=== PATIENT | female | born 1935 | race American Indian/Alaskan Native ===

== ENCOUNTER 2018-03-30 16:32 | Emergency (ER) | payer MEDICARE ==
[2018-03-30 16:58] VITALS: BP 178/94
[2018-03-30 17:58] LABS: Hematocrit 40.8 % (30.3-42.9); Hemoglobin 13.5 gm/dl (10.1-14.3); Mean Corpuscular HGB Conc 33 % (30-34); Mean Corpuscular Hemoglobin 27 pg (28-32); Mean Corpuscular Volume 82 fl (79-97); Platelet Count 377 K/mm3 (140-440); Red Cell Distribution Width 17.3 % (13.2-15.2)
[2018-03-30 18:09] LABS: BUN/Creatinine Ratio 10; Blood Urea Nitrogen 9 mg/dL (7-17); Calcium 9.5 mg/dL (8.4-10.2); Hemolysis Index 34
--- NOTE | 2018-03-30 18:52 | XRay Report ---
FINAL REPORT EXAM: XR CHEST ROUTINE 2V HISTORY: PERSISTANT COUGH TECHNIQUE: Two view chest PA and lateral PRIORS: None. FINDINGS: Cardiac and mediastinal contours are unremarkable. No focal pulmonary infiltrate is identified. No pleural fluid collection seen. Pulmonary vasculature is unremarkable. IMPRESSION: Negative two-view chest
[2018-03-30] MEDS ORDERED: NORCO 5/325 PO ONE (22:11)
--- NOTE | 2018-03-30 22:23 | Emergency Department Report ---
HPI - General Chief Complaint: Pain General Time Seen by Provider: 03/30/18 19:25 - HPI HPI: Room 10 The patient is an 82-year-old female presenting with a chief complaint of chest congestion left thigh pain. The patient states his symptoms began approximately 2 weeks ago with chest congestion and a cough productive of yellow mucous. Patient is to fever 101F as well as chills. The patient states she's also had pain in left buttocks radiating to the left lateral aspect of her knee for the past 5 days. Patient states the pain is intermittent. Patient currently gets her pain score 7.5/10. Patient denies any recent trauma. Patient states it usually hurts when she lies on her left leg. Location: [See above] Duration: 2 weeks Quality: Pain, congestion Severity: 7.5/10 Modifying factors: [see above] Context: [see above] Mode of transportation: [not driving] ED Past Medical Hx - Past Medical History Hx Diabetes: Yes Hx GERD: Yes (BLEEDING ULCERS IN 1976) Hx Arthritis: Yes (RA) Additional medical history: GOUT, HYPOTHYROIDISM, ELEVATED CHOLESTEROL, PNEUMONIA AND BRONCHITIS - Surgical History Past Surgical History?: No Additional Surgical History: D/C - Family History Family history: no significant - Social History Smoking Status: Never Smoker Substance Use Type: None - Medications Home Medications: Home Medications Medication Instructions Recorded Confirmed Last Taken Type Azithromycin [Zithromax Z-STACEY] 0 mg PO DAILY #6 tab 03/30/18 Unknown Rx HYDROcodone/APAP 5-325 [[place] 1 each PO Q6HR PRN #14 tablet 03/30/18 Unknown Rx 5/325] ED Review of Systems ROS: Stated complaint: LOWER BACK/ABD/KNEE PAIN Other details as noted in HPI Constitutional: fever Eyes: denies: eye pain ENT: denies: throat pain Respiratory: cough Cardiovascular: denies: chest pain Endocrine: no symptoms reported Gastrointestinal: denies: abdominal pain Genitourinary: denies: dysuria Musculoskeletal: myalgia Neurological: denies: headache Physical Exam - Physical Exam Vital Signs: Vital Signs 03/30/18 16:46 Temperature 98.3 F Pulse Rate 76 Respiratory 18 Rate Blood Pressure 178/94 O2 Sat by Pulse 98 Oximetry Physical Exam: GENERAL: The patient is well-developed well-nourished female lying on stretcher not appearing to be in acute distress. [] HEENT: Normocephalic. Atraumatic. Extraocular motions are intact. Patient has moist mucous membranes. NECK: Supple. Trachea midline CHEST/LUNGS: Clear to auscultation. There is no respiratory distress noted. HEART/CARDIOVASCULAR: Regular. There is no tachycardia. There is no gallop rub or murmur. ABDOMEN: Abdomen is soft, nontender. Patient has normal bowel sounds. There is no abdominal distention. SKIN: There is no rash. There is no edema. There is no diaphoresis. NEURO: The patient is awake, alert, and oriented. The patient is cooperative. The patient has normal speech MUSCULOSKELETAL: There is no tenderness of the left calf. There is positive left straight leg raise test. There is no evidence of acute injury. ED Course Vital Signs 03/30/18 16:46 Temperature 98.3 F Pulse Rate 76 Respiratory 18 Rate Blood Pressure 178/94 O2 Sat by Pulse 98 Oximetry ED Medical Decision Making - Lab Data Result diagrams: 03/30/18 17:17 03/30/18 17:17 Laboratory Tests 03/30/18 03/30/18 17:17 17:17 WBC 6.3 RBC 5.00 Hgb 13.5 Hct 40.8 MCV 82 MCH 27 L MCHC 33 RDW 17.3 H Plt Count 377 Sodium 137 Potassium 4.0 Chloride 101.9 Carbon Dioxide 21 L Anion Gap 18 BUN 9 Creatinine 0.9 Estimated GFR > 60 BUN/Creatinine Ratio 10 Glucose 107 H Calcium 9.5 - Radiology Data Radiology results: report reviewed (chest x-ray, left femur x-ray), image reviewed (chest x-ray, left femur x-ray) interpreted by me: Chest x-ray-no focal infiltrates, no pneumothorax Left femur x-ray-no definite acute fractures - Differential Diagnosis pneumonia, bronchitis, sciatica Critical care attestation.: If time is entered above; I have spent that time in minutes in the direct care of this critically ill patient, excluding procedure time. ED Disposition Clinical Impression: Acute bronchitis, Sciatica Disposition: - TO HOME OR SELFCARE Is pt being admited?: No Does the pt Need Aspirin: No Condition: Stable Instructions: Acute Bronchitis (ED) Additional Instructions: Return to the emergency department immediately should you develop worsening symptoms, fever, inability to tolerate food or liquid or any other concerns. Prescriptions: Azithromycin [Zithromax Z-STACEY] 0 mg PO DAILY #6 tab HYDROcodone/APAP 5-325 [[place] 5/325] 1 each PO Q6HR PRN #14 tablet PRN Reason: Pain Referrals: PRIMARY CARE, [Primary Care Provider] - 3-5 Days Time of Disposition: 23:12
--- NOTE | 2018-03-30 23:23 | XRay Report ---
FINAL REPORT EXAM: XR FEMUR 2+V LT HISTORY: pain TECHNIQUE: Left femur AP and lateral views PRIORS: None. FINDINGS: There is marked degenerative change at the knee with medial and lateral joint space narrowing. There narrowing of the patellofemoral joint space. Marginal osteophytes are present. No acute fracture is identified. 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
[2018-03-31 07:12] LABS: Bacteria,Urine 1+ /HPF (Negative); Bilirubin,Urine NEG (Negative); Blood,Urine SM (Negative); Color,Urine Yellow (Yellow); Protein,Urine <15 mg/dL mg/dL (Negative); Urobilinogen,Urine < 2.0 mg/dL (<2.0)
== END 2018-03-30 23:34 | disposition home or self-care (01) ==
LOC: ED 16:32
DX: J20.9 Acute bronchitis, unspecified (principal); M54.30 Sciatica, unspecified side; K21.9 Gastro-esophageal reflux disease without esophagitis; E11.9 Type 2 diabetes mellitus without complications; M06.9 Rheumatoid arthritis, unspecified; E03.9 Hypothyroidism, unspecified
CPT/HCPCS: 36415; 71046; 80048; 81001; 85027; 99284